=== PATIENT | male | born 1935 | race Caucasian/White ===

== ENCOUNTER 2021-10-30 09:03 | Outpatient (CLI) | payer MEDICARE | END 2021-10-30 09:04 | disposition home or self-care (01) | LOC: NM 09:03 | PROVIDERS: ATTEND Psychiatry & Neurology Neurology | DX: R25.1 Tremor, unspecified (principal); R26.9 Unspecified abnormalities of gait and mobility | CPT/HCPCS: 78803; A9584 ==